=== PATIENT | male | born 1995 | race Two or more races ===

== ENCOUNTER 2021-10-15 15:44 | Emergency (ER) | payer SELFPAY ==
[~2021-10-15] VITALS: Ht 180.3 cm; Wt 61.3 kg
[2021-10-15 15:55] VITALS: BP 126/83
[2021-10-15] MEDS ORDERED: cefTRIAXone SOD 1,000 MG VL IM ONE (17:30)
[2021-10-15] MEDS ORDERED: CEPH-509 PO (17:43)
[2021-10-15] MEDS ORDERED: IBUP600T27 PO (17:43)
== END 2021-10-15 17:46 | disposition home or self-care (01) ==
LOC: ER 15:44
DX: N49.2 Inflammatory disorders of scrotum (principal); F12.10 Cannabis abuse, uncomplicated
CPT/HCPCS: 76870; 96372; 99284; J0696

== ENCOUNTER 2021-10-18 07:11 | Emergency (ER) | payer MEDICAID ==
[~2021-10-18] VITALS: Ht 180.3 cm; Wt 69.0 kg
[~2021-10-18 07:11] MED LIST: CEPH-509 PO; IBUP600T27 PO
[2021-10-18 07:27] VITALS: BP 119/77
[2021-10-18 08:05] LABS: Urine Bacteria NONE SEEN /hpf (None Seen); Urine Blood Negative /uL (Negative); Urine Mucus FEW (None Seen); Urine Specific Gravity 1.018 (1.001-1.035); Urine WBC 1 /hpf (0 - 3)
[2021-10-18] MEDS ORDERED: levoFLOXacin 500MG 100 ML IV ONE (12:15)
[2021-10-18] MEDS ORDERED: SODIUM CHLORIDE 0.9% 1,000 ML IV ONE (12:15)
[2021-10-18 12:49] LABS: Basophils # (auto) 0 10 ^3/uL (0-0.2); Basophils % (auto) 0.7 % (0.0-2.0); Eosinophils # (auto) 0.1 10 ^3/uL (0-0.8); Eosinophils % (auto) 0.9 % (0.0-7.0); Hematocrit 42.1 % (41.0-53.0); Hemoglobin 14.5 g/dL (13.5-17.5); Lymphocytes # (auto) 1.8 10 ^3/uL (0.4-5.4); Lymphocytes % (auto) 27.4 % (10.0-50.0); Mean Corpuscular Hemoglobin 29.4 pg (28.0-32.0); Mean Corpuscular Hgb Conc. 34.4 g/dL (32.0-36.0); Mean Corpuscular Volume 85.5 fL (80.0-100.0); Monocytes # (auto) 0.5 10 ^3/uL (0-1.3); Monocytes % (auto) 7.6 % (0.0-12.0); Neutrophils # (auto) 4.1 10 ^3/uL (1.6-8.6); Neutrophils % (auto) 63.4 % (37.0-80.0); Nucleated Red Blood Cells % 0.1 %; Red Blood Cells 4.92 10^6/uL (4.5-5.90); Red Cell Distribution Width 15.2 % (11.8-14.3); White Blood Cell 6.5 10^3/uL (4.4-10.8)
[2021-10-18 13:13] LABS: Albumin 4.4 g/dL (3.4-5.0); BUN/Creatinine Ratio 10.3; Calcium 9.3 mg/dL (8.5-10.1)
[2021-10-18 13:18] LABS: Bilirubin, Total 0.4 mg/dL (0.2-1.0); Total Protein 8.2 g/dL (6.4-8.2)
== END 2021-10-18 12:16 | disposition left against medical advice (07) ==
LOC: ER 07:11
DX: N49.2 Inflammatory disorders of scrotum (principal); Z79.1 Long term (current) use of non-steroidal anti-inflammatories (NSAID); Z79.899 Other long term (current) drug therapy
CPT/HCPCS: 36415; 80053; 81001; 85025